=== PATIENT | female | born 1970 | race Caucasian/White ===

== ENCOUNTER 2018-10-15 11:56 | Emergency (ER) | payer OTHER ==
[~2018-10-15] VITALS: Ht 149.9 cm; Wt 57.6 kg
[~2018-10-15 11:56] MED LIST: EFFEXOR XR150 MG ORAL; KLONOPIN0.5 MG ORAL; LEXAPRO20 MG ORAL; XANAX0.25 MG ORAL; XANAX0.5 MG ORAL
--- NOTE | 2018-10-15 12:32 | NUR ---
ED Nurse Note: Pt came into the ER w/ complaints of right shoulder pain x 3 days. Pt states that it occurred when she lifted something heavy. Pt is complaining of 10/10 pain. Non radiating. Pt is A + O x4. Ambulatory. Skin warm to touch.
[2018-10-15 12:33] VITALS: BP 101/56
[2018-10-15] MEDS ORDERED: Ketorolac 30mg Inj IM ONE (13:15)
--- NOTE | 2018-10-15 13:17 | Emergency Room Report ---
History of Present Illness General Chief Complaint: Upper Extremity Injury Source: Patient Present Illness HPI 47 YO Female presents to the ED C/O 03/19 in severity right shoulder pain. That has been progressive 1 week. 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 Patient reports pain on the lateral aspect of her shoulder she denies clicking she denies paresthesias she denies weakness. Patient also reports that she has intermittent neck muscle spasms that have been ongoing for several years and she states that her recent activities have also exacerbated those symptoms as well. She denies midline neck or back pain. Denies nausea vomiting fevers chills headaches dizziness, photophobia or visual changes. Allergies: Coded Allergies: ACETAMINOPHEN (Verified Allergy, 08/18/13) ASPIRIN (Verified Allergy, 08/18/13) CODEINE (Verified Allergy, 08/18/13) HYDROCODONE (Verified Allergy, 08/18/13) PENICILLINS (Verified Allergy, 08/18/13) Patient History Past Medical History: see triage record Past Surgical History: none Pertinent Family History: none Last Menstrual Period: hyst Now: No Reviewed Nursing Documentation: PMH: Agreed; PSxH: Agreed Nursing Documentation-PMH Past Medical History: No History, Except For Review of Systems All Other Systems: negative except mentioned in HPI Physical Exam Vital Signs Date Time Temp Pulse Resp B/P (MAP) Pulse Ox O2 Delivery O2 Flow Rate FiO2 10/15/18 12:13 98.2 67 18 98 Room Air 10/15/18 12:33 101/56 Sp02 EP Interpretation: reviewed, normal General Appearance: no apparent distress, alert, GCS 15, non-toxic Head: normocephalic, atraumatic Eyes: bilateral eye normal inspection, bilateral eye PERRL ENT: hearing grossly normal, normal voice Neck: full range of motion, tender lateral - right lateral Respiratory: chest non-tender, lungs clear, normal breath sounds, speaking full sentences Cardiovascular #1: regular rate, rhythm, normal capillary refill Cardiovascular #2: 2+ radial (R) Musculoskeletal: back normal, gait/station normal, normal range of motion, tender - right deltoid, no instability of the shoulder, no clicking, negative lift off test. NVI. FROM. no obvious deformity Neurologic: alert, oriented x3, responsive, motor strength/tone normal, sensory intact, speech normal, grossly normal Psychiatric: judgement/insight normal Skin: normal color, no rash, warm/dry, well hydrated Lymphatic: no adenopathy Medical Decision Making PA Attestation Dr. doty is my supervising Physician whom patient management has been discussed with. Diagnostic Impression: Primary Impression: Overuse syndrome of shoulder Qualified Codes: S46.911A - Strain of unspecified muscle, fascia and tendon at shoulder and upper arm level, right arm, initial encounter Additional Impression: Neck muscle spasm ER Course 47 YO Female presents to the ED C/O 03/19 in severity right shoulder pain. That has been progressive 1 week. 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 Patient reports pain on the lateral aspect of her shoulder she denies clicking she denies paresthesias she denies weakness. Patient also reports that she has intermittent neck muscle spasms that have been ongoing for several years and she states that her recent activities have also exacerbated those symptoms as well. She denies midline neck or back pain. Denies nausea vomiting fevers chills headaches dizziness, photophobia or visual changes. Ddx considered but are not limited to Fracture, dislocation, contusion, Sprain/ Strain/Spasm Vital signs: are WNL, pt. is afebrile H&PE are most consistent with muscle spasm and over use syndrome, no neurological deficits, no deformities, no localized bony ttp ORDERS: none required at this time. ED INTERVENTIONS: -Toradol IM -Lidoderm Patch DISCHARGE: At this time pt. is stable for d/c to home. Will provide printed patient care instructions, and any necessary prescriptions. Care plan and follow up instructions have been discussed with the patient prior to discharge. Last Vital Signs Date Time Temp Pulse Resp B/P (MAP) Pulse Ox O2 Delivery O2 Flow Rate FiO2 10/15/18 12:33 98.1 78 20 101/56 98 Room Air Disposition: HOME, SELF-CARE Condition: Stable Scripts Methocarbamol* (ROBAXIN-750*) 750 Mg Tablet 750 MG PO QID for 7 Days, #28 TAB 0 Refills Prov: Kate Arriaga 10/15/18 Referrals: [facility] Patient Instructions: Shoulder Pain, [id number] Additional Instructions: Take medications as directed. Follow up with a Primary Care Provider in 3-5 days, even if your symptoms have resolved. --Please review list of primary care clinics, if you do not already have a primary care provider Return sooner to ED if new symptoms occur, or current symptoms become worse. Do not drink alcohol, drive, or operate heavy machinery while taking Robaxin ( Muscle Relaxers) as this may cause drowsiness. - Please note that this Emergency Department Report was dictated using [employer] tender technology software, occasionally this can lead to erroneous entry secondary to interpretation by the dictation equipment. Kate Arriaga October 15, 2018 13:17
[2018-10-15] MEDS ORDERED: ROBAXIN-750750 MG PO (13:18)
[2018-10-15 13:32] VITALS: BP 100/60
--- NOTE | 2018-10-15 13:32 | NUR ---
ER DISCHARGE NOTE: Patient is cleared to be discharged per ERMD, pt is aox4, on room air, with stable vital signs. pt was given dc and prescription instructions, pt was able to verbalize understanding, pt id band removed without complications. pt is able to ambulate with steady gait. pt took all belongings.
== END 2018-10-15 13:32 | disposition home or self-care (01) ==
LOC: EMR 12:42
DX: S46.911A Strain of unspecified muscle, fascia and tendon at shoulder and upper arm level, right arm, initial encounter (principal); M62.838 Other muscle spasm; Z88.6 Allergy status to analgesic agent; Z88.0 Allergy status to penicillin; Z90.710 Acquired absence of both cervix and uterus; W19.XXXA Unspecified fall, initial encounter; Y92.9 Unspecified place or not applicable
CPT/HCPCS: 96372; 99283; J1885